=== PATIENT | female | born 1960 | race Caucasian/White ===

== ENCOUNTER 2016-11-23 08:04 | Emergency (ER) | payer BC ==
[~2016-11-23] VITALS: Ht 160 cm; Wt 100.5 kg
[~2016-11-23 08:04] MED LIST: ATOR10TA65 PO; CIPR500T4 PO; FLUC150T17 PO; HYDR12.58 PO; METF500T4 PO; OMEP20CA16 PO; PHEN-616 PO
[2016-11-23 08:09] VITALS: Ht 160 cm; Wt 100.5 kg
[2016-11-23] MEDS ORDERED: SOD CHLORIDE 0.9% 1,000 ML IV STA (08:32)
[2016-11-23] MEDS ORDERED: ONDANSETRON 4 MG INJ IV STA (08:32)
[2016-11-23 08:58] LABS: BASOPHIL # 0.1 10^3/ul (0.0-0.1); BASOPHILS % 1.6 % (0.0-2.0); EOSINOPHILS # 0.3 10^3/ul (0.0-0.5); EOSINOPHILS % 3.3 % (0.0-7.0); HEMATOCRIT 39.4 % (37.0-47.0); LYMPHOCYTES # 2.7 10^3/ul (0.8-2.9); LYMPHOCYTES % 30.8 % (15.0-51.0); MEAN CORPUSCULAR HGB CONC 33.1 g/dl (32.0-37.0); MEAN CORPUSCULAR VOLUME 81.7 fl (82.0-101.0); MEAN PLATELET VOLUME 9.1 fl (7.4-10.4); MONOCYTE # 0.8 10^3/ul (0.3-0.9); MONOCYTES % 9.5 % (0.0-11.0); NEUTROPHIL # 4.7 10^3/ul (1.6-7.5); NEUTROPHILS % 54.8 % (39.0-77.0); PLATELET COUNT 395 10^3/UL (140-440); RED BLOOD COUNT 4.82 10^6/ul (4.20-5.40); RED CELL DISTRIBUTION WIDTH 16.6 % (11.5-14.5); UNCORRECTED WBC 8.6 10^3/ul (4.8-10.8); WHITE BLOOD COUNT 8.6 10^3/ul (4.8-10.8)
[2016-11-23 08:59] LABS: ADD UMIC YES; URINE BILIRUBIN (Dip) NEGATIVE (NEGATIVE); URINE BLOOD (Dip) 1+ (NEGATIVE); URINE COLOR YELLOW (YELLOW); URINE GLUCOSE (Dip) NEGATIVE (NEGATIVE); URINE KETONES (Dip) NEGATIVE (NEGATIVE); URINE LEUKOCYTE ESTERASE (Dip) NEGATIVE (NEGATIVE); URINE NITRITE (Dip) NEGATIVE (NEGATIVE); URINE UROBILINOGEN (Dip) 0.2 E.U./dL (0.1-1.0)
[2016-11-23 09:00] LABS: URINE TOTAL PROTEIN (Dip) NEGATIVE (NEGATIVE)
[2016-11-23] MEDS ORDERED: DICYCLOMINE 20 MG INJ IM ONE (09:00)
[2016-11-23 09:03] LABS: CONDITION 1; LH ANALYZER COMMENTS 1
[2016-11-23 09:09] LABS: BACTERIA,URINE MODERATE
--- NOTE | 2016-11-23 09:34 | RADRPT ---
PROCEDURE: CT Abdomen and Pelvis without contrast. CLINICAL INDICATION: Abdominal pain and bloating TECHNIQUE: CT scan of the abdomen and pelvis without contrast was performed on a multidetector hig h-resolution CT scanner. The patient was scanned without intravenous contrast. Coronal and sagittal reformatted images were obtained from the axial source images. Images were reviewed on a high-resol Epic! PACS workstation. The total exam CTDI equals 23.61 mGy and the total exam DLP equals 1332.41 m Gy-cm. One or more of the following dose reduction techniques were used: Automated exposure control. Adjustment of the mA and/or kV according to patient size. Use of iterative reconstruction technique. COMPARISON: CT abdomen pelvis 04/06/2012 FINDINGS: CT abdomen: The lung bases are clear. The heart size is normal, without pericardial thickening or effusion. Th e liver is normal in size and density . There is approximately 4.2 x 3.5 cm lobulated hypodense les ion in the right posterior hepatic lobe. The spleen is normal in size and homogeneous in density. The stomach is partially collapsed, but is grossly unremarkable. The pancreas as visualized is norm al. The gallbladder and biliary tree are unremarkable and there is no evidence for biliary dilatati on. The adrenal glands are symmetric and normal. The kidneys are symmetrically unremarkable as wel l. No renal calculus or obstructive uropathy or mass lesion is seen. The aorta is of normal caliber. There is no retroperitoneal lymphadenopathy. The rebeka hepatis jessica on is clear. The bowel and mesentery, as visualized, are equally unremarkable. CT pelvis: The small bowel loops situated within the pelvis are unremarkable. There is a normal appendix. The p elvic organs are normal. The pelvic sidewalls and inguinal regions are clear. The sigmoid colon an d rectum are remarkable for sigmoid diverticulosis. No mass, lymphadenopathy, or free fluid is seen . No acute inflammation is seen. No osteolytic or osteoblastic lesion is detected. IMPRESSION: 1. No mass, lymphadenopathy, or focal acute inflammatory process is identified. 2. Approximately 4.2 x 3.5 cm multilobulated hypodense structure in the right posterior hepatic lob e likely representing a hepatic cyst. Recommend ultrasound for confirmation. 3. Normal appendix. RPTAT: BB .Felix Oates MD, MD Date Time Electronically viewed and signed by .Felix Oates MD, MD on 11/23/2016 09:33 .O/
--- NOTE | 2016-11-23 09:41 | ERD ---
ER Documentation Chief Complaint Date/Time DATE: 11/23/16 TIME: 09:39 Chief Complaint mid abdominal pain x 12 days.denies any other symptoms.hx gastritis HPI 56-year-old female Vietnamese-speaking. 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 The patient describes approximately 2 weeks of abdominal pain. She describes it as left lower quadrant, cramping and intermittent with associated bloating. She describes a endoscopy and colonoscopy approximately 1 year ago that she states "was incomplete ". She denies any fevers or chills, no chest pain, no nausea vomiting or diarrhea. The patient states that she cannot sleep because of the abdominal bloating. She denies any bloody stools. ROS All systems reviewed and are negative except as per history of present illness. Medications Home Meds Active Scripts Ondansetron (Ondansetron Odt) 4 Mg Tab.rapdis, 4 MG PO Q6H Y for NAUSEA AND/OR VOMITING, #10 TAB Prov:THERESE SMYTH MD 11/23/16 Dicyclomine Hcl* (Bentyl*) 10 Mg Capsule, 10 MG PO QID Y for abdominal cramping , #30 CAP Prov:THERESE SMYTH MD 11/23/16 Reported Medications Lisinopril* (Lisinopril*) 10 Mg Tablet, 10 MG PO DAILY, #30 TAB 11/23/16 Dicyclomine Hcl* (Bentyl*) 10 Mg Capsule, 20 MG PO BID, CAP 11/23/16 Diclofenac Sodium* (Diclofenac Sodium*) 50 Mg Tablet.dr, 50 MG PO DAILY, #60 TAB 11/23/16 Famotidine* (Famotidine*) 40 Mg Tablet, 40 MG PO HS, #30 TAB 11/23/16 Hydrochlorothiazide* (Hydrochlorothiazide*) 25 Mg Tab, 25 MG PO DAILY, #30 TAB 11/23/16 Atorvastatin* (Atorvastatin*) 40 Mg Tablet, 40 MG PO QHS, #30 TAB 11/23/16 Omeprazole* (Omeprazole*) 20 Mg Capsule.dr, 20 MG PO DAILY, CAP 09/03/15 Discontinued Reported Medications Metformin* (Glucophage*) 500 Mg Tab, 500 MG PO BID, TAB 09/03/15 Hydrochlorothiazide* (Hydrochlorothiazide*) 12.5 Mg Tablet, 12.5 MG PO DAILY, TAB 09/03/15 Atorvastatin Calcium (Atorvastatin Calcium) 10 Mg Tablet, 10 MG PO HS, TAB 09/03/15 Discontinued Scripts Fluconazole* (Diflucan*) 150 Mg Tablet, 150 MG PO ONCE, #1 TAB Prov:PER COOPER MD 12/28/15 Ciprofloxacin Hcl* (Ciprofloxacin Hcl*) 500 Mg Tablet, 500 MG PO BID, #6 TAB Prov:YIMI FALCON DO 12/25/15 Phenazopyridine Hcl* (Phenazopyridine Hcl*) 200 Mg Tablet, 200 MG PO TID, #6 TAB Prov:YIMI FALCON DO 12/25/15 Allergies Allergies: Coded Allergies: No Known Allergy (Verified , 08/30/12) PMhx/Soc History of Surgery: No Anesthesia Reaction: No Hx Neurological Disorder: No Hx Respiratory Disorders: No Hx Cardiac Disorders: Yes (HTN, HYPERLIPIDEMIA) Hx Psychiatric Problems: No Hx Miscellaneous Medical Probl: Yes (DM, DIVERTICULITIS) Hx Alcohol Use: No Hx Substance Use: No Hx Tobacco Use: No FmHx Family History: No diabetes Physical Exam Vitals Vital Signs Date Time Temp Pulse Resp B/P Pulse Ox O2 Delivery O2 Flow Rate FiO2 11/23/16 10:12 98.2 58 18 123/73 100 Room Air 11/23/16 08:09 98.2 78 18 115/58 98 Physical Exam General: Morbidly obese, no acute distress Head: Normocephalic, atraumatic. Eyes: Pupils equally reactive, EOM intact ENT: Moist mucous membranes Neck: Supple, no lymphadenopathy Respiratory: Lungs clear bilaterally, no distress Cardiovascular: RRR, no murmurs, rubs, or gallops Abdominal: Soft, non-tender, non-distended, no peritoneal signs, no pulsatile mass, negative Robles sign : Deferred MSK: No edema, no unilateral swelling, 5/5 strength Neurologic: Alert and oriented, moving all extremities, normal speech, no focal weakness, no cerebellar signs Skin: No rash Psych: Normal mood Result Diagram: 11/23/1683811/23/16838 Results 24 hrs Laboratory Tests Test 11/23/16 08:39 Alanine Aminotransferase (ALT/SGPT) 65IU/L Albumin 4.3g/dl Albumin/Globulin Ratio 1.13 Alkaline Phosphatase 126IU/L Anion Gap 18 Aspartate Amino Transf (AST/SGOT) 70IU/L Basophils # 0.110^3/ul Basophils % 1.6% Blood Morphology Comment Blood Urea Nitrogen 7mg/dl Calcium Level 9.4mg/dl Carbon Dioxide Level 25mmol/L Chloride Level 101mmol/L Creatinine 0.47mg/dl Direct Bilirubin 0.00mg/dl Eosinophils # 0.310^3/ul Eosinophils % 3.3% Globulin 3.80g/dl Glucose Level 110mg/dl Hematocrit 39.4% Hemoglobin 13.0g/dl Indirect Bilirubin 0.2mg/dl Lipase 106U/L Lymphocytes # 2.710^3/ul Lymphocytes % 30.8% Mean Corpuscular Hemoglobin 27.0pg Mean Corpuscular Hemoglobin Concent 33.1g/dl Mean Corpuscular Volume 81.7fl Mean Platelet Volume 9.1fl Monocytes # 0.810^3/ul Monocytes % 9.5% Neutrophils # 4.710^3/ul Neutrophils % 54.8% Nucleated Red Blood Cells # 0.010^3/ul Nucleated Red Blood Cells % 0.0/100WBC Platelet Count 83922^3/UL Potassium Level 4.0mmol/L Red Blood Count 4.8210^6/ul Red Cell Distribution Width 16.6% Sodium Level 140mmol/L Total Bilirubin 0.2mg/dl Total Protein 8.1g/dl Urine Bacteria MODERATE Urine Bilirubin NEGATIVE Urine Clarity CLEAR Urine Color YELLOW Urine Epithelial Cells MANY Urine Glucose NEGATIVE% Urine Hemoglobin 1+ Urine Ketones NEGATIVE Urine Leukocyte Esterase NEGATIVE Urine Microscopic RBC 2-5/HPF Urine Microscopic WBC 2-5/HPF Urine Nitrite NEGATIVE Urine Specific [place] 1.010 Urine Total Protein NEGATIVE Urine Urobilinogen 0.2 E.U./dL Urine pH 7.0 White Blood Count 8.610^3/ul Current Medications Medications (Trade) Dose Ordered Sig/Barrie Route PRN Reason Start Time Stop Time Status Last Admin Dose Admin Sodium Chloride (NS) 1,000 ml @ 1,000 mls/hr Q1H STAT IV 11/23/16 08:32 11/23/16 09:31 DC 11/23/16 09:00 Ondansetron HCl (Zofran Inj) 4 mg ONCE STAT IV 11/23/16 08:32 11/23/16 08:34 DC 11/23/16 09:00 Dicyclomine HCl (Bentyl) 10 mg ONCE ONCE IM 2/14/17 09:00 11/23/16 09:01 DC 11/23/16 09:07 Procedures/MDM EKG, MONITORS, & DIAGNOSTIC IMAGING: CT abdomen and pelvis: IMPRESSION: 1. No mass, lymphadenopathy, or focal acute inflammatory process is identified. 2. Approximately 4.2 x 3.5 cm multilobulated hypodense structure in the right posterior hepatic lobe likely representing a hepatic cyst. Recommend ultrasound for confirmation. 3. Normal appendix. LAB INTERPRETATION: No leukocytosis, normal hemoglobin MEDICAL DECISION MAKING: The patient presents with 2 weeks of abdominal bloating and pain. Broad differential that includes diverticulosis, diverticulitis, constipation among others. Given the patient's age consider possible malignancy however the patient states she had a colonoscopy one year ago. She does however state that this was incomplete given that she still had some food in her colon. Given the patient's age and duration of symptoms CT imaging of the abdomen and pelvis would be reasonable to rule out acute diverticulitis given the left lower quadrant component. Low concern for aortic process, appendicitis, hepatobiliary process. I advised that if everything is normal the patient can be safely discharged home she needs prompt primary care follow-up in GI follow- up. The patient may require a repeat colonoscopy for completion. ER COURSE: The patient was given Bentyl and fluids. She continues to be well-appearing and now asymptomatic. CT imaging is negative. The patient is safe for outpatient management. GI referral provided. I kept the patient and/or family informed of laboratory and diagnostic imaging results throughout the emergency room course. DISPOSITION PLAN: We discussed follow up with the patient's primary care doctor within 24 to 48 hours as needed. We also discussed return to the emergency room for worsening symptoms or worsening condition. Discharge Medications: Bentyl, Zofran Departure Diagnosis: Primary Impression: Abdominal pain Abdominal location: left lower quadrant Qualified Code: R10.32 - Left lower quadrant pain Condition: Stable THERESE SMYTH MD Nov 23, 2016 09:41
[2016-11-23 09:45] LABS: ALBUMIN 4.3 g/dl (3.3-4.9)
[2016-11-23 09:48] LABS: ALBUMIN/GLOBULIN RATIO 1.13; BILIRUBIN,INDIRECT 0.2 mg/dl (0-1.1); BILIRUBIN,TOTAL 0.2 mg/dl (0.2-1.3); CALCIUM 9.4 mg/dl (8.4-10.2); CREATININE 0.47 mg/dl (0.44-1.00); TOTAL PROTEIN 8.1 g/dl (6.1-8.1)
[2016-11-23] MEDS ORDERED: ATOR40TA68 PO (10:03)
[2016-11-23] MEDS ORDERED: HYD25 PO (10:04)
[2016-11-23] MEDS ORDERED: FAMO40TA52 PO (10:05)
[2016-11-23] MEDS ORDERED: LISI10TA2 PO (10:06)
[2016-11-23] MEDS ORDERED: DICL50TA11 PO (10:06)
[2016-11-23] MEDS ORDERED: DICY10CA60 PO ×2 (10:06→10:42)
[2016-11-23 10:12] VITALS: BP 123/73; PULSE 58; RESP 18; TEMP 98.2
[2016-11-23] MEDS ORDERED: ONDA4TAB14 PO (10:42)
== END 2016-11-23 10:57 | disposition home or self-care (01) ==
LOC: FTE 08:04 → E/R 10:57
DX: R10.32 Left lower quadrant pain (principal); I10 Essential (primary) hypertension; E11.9 Type 2 diabetes mellitus without complications; Z79.84 Long term (current) use of oral hypoglycemic drugs
CPT/HCPCS: 74176; 80053; 81001; 83690; 85025; 96361; 96372; 96374; J0500; J2405; J7030; Z7502; 81003

== ENCOUNTER 2018-01-15 18:39 | Emergency (ER) | END 2018-01-15 20:46 | disposition home or self-care (01) ==

== ENCOUNTER 2018-04-01 11:24 | Emergency (ER) | END 2018-04-01 14:58 | disposition home or self-care (01) ==

== ENCOUNTER 2018-04-02 14:05 | Observation (INO) | END 2018-04-04 18:26 | disposition home or self-care (01) ==